=== PATIENT | male | born 1935 | race Caucasian/White ===

== ENCOUNTER → 2017-03-24 | Outpatient (CLI) | payer OTHER ==
[~2017-03-24] MED LIST: ACET-1256 PO; ASMIN/60 INH; ASTN; CZR50 PO; GEMF600T PO; MXZC25 PO; NIFE60TA PO; NTRGSL/4 UT; OXYC-292 PO; OXYC-57 PO; PANT40TA PO; PSYL55.43; SENN-63 PO; SIMV20TA2 PO; SOLI5TAB2 PO; TRIA0.1C55; WARF2TAB8 PO
== END | disposition home or self-care (01) ==
LOC: C.RDSM 13:13
PROVIDERS: ATTEND Physical Medicine & Rehabilitation Sports Medicine
DX: Z96.652 Presence of left artificial knee joint (principal); M25.562 Pain in left knee

== ENCOUNTER → 2017-05-07 | Outpatient (CLI) | payer OTHER ==
--- NOTE | 2017-05-07 15:23 | DIAGNOSTIC IMAGING REPORT ---
L PELVIS UNILATERAL HIP 1 VIEW CLINICAL HISTORY: TROCHANTERIC BURSITIS pain COMPARISON: None. DISCUSSION: Mild left and to lesser extent right hip greater trochanteric calcific bursitis. 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 Degenerative changes low lumbar spine. No evidence for acetabular protrusion. There is no evidence for soft tissue swelling. IMPRESSION: 1. Moderate degenerative changes of hips bilaterally. 2. Mild bilateral calcific trochanteric bursitis. 3. Degenerative changes low lumbar spine. The above report was generated using voice recognition software. It may contain grammatical, syntax or spelling errors. Electronically signed by: Trell De La Torre M.D. 05/07/2017 3:22 PM Dictated Date/Time: 05/07/2017 3:21 PM
--- NOTE | 2017-05-07 15:26 | DIAGNOSTIC IMAGING REPORT ---
LUMBAR SPINE MIN 4 VIEWS CLINICAL HISTORY: 82 years-old Male presenting with TROCHANTERIC BURSITIS, left hip and thigh pain, low back pain, history of left total knee arthroplasty. TECHNIQUE: Frontal, bilateral oblique, lateral, and coned in lateral views of lumbar spine were obtained. COMPARISON: Correlation made to CT of the abdomen and pelvis from 04/03/2012. FINDINGS: Mild levoscoliotic curvature of the lumbar spine centered at L3. Focal kyphotic deformity noted at T12-L1 secondary to anterior vertebral body height loss of L1 (approximately 40% height loss). This deformity is not significantly changed since 2011. Remainder of the vertebral bodies demonstrate normal height and alignment. Intervertebral disc height loss noted at L4-5. No pars defect is evident. Osseous neural foraminal narrowing may be present at L4-5 and L5-S1. IMPRESSION: 1. 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 2. Chronic compression fracture of L1 with resultant focal kyphotic deformity. 3. Mild levoscoliosis. Electronically signed by: Som Plummer M.D. 05/07/2017 3:25 PM Dictated Date/Time: 05/07/2017 3:21 PM
== END | disposition home or self-care (01) ==
LOC: C.RDSM 15:02
PROVIDERS: ATTEND Physician Assistant
DX: M79.652 Pain in left thigh (principal); M70.60 Trochanteric bursitis, unspecified hip; M16.0 Bilateral primary osteoarthritis of hip; M47.816 Spondylosis without myelopathy or radiculopathy, lumbar region; S32.011A Stable burst fracture of first lumbar vertebra, initial encounter for closed fracture; X58.XXXA Exposure to other specified factors, initial encounter; M40.209 Unspecified kyphosis, site unspecified

== ENCOUNTER → 2018-01-12 | Outpatient (CLI) | payer OTHER | END | disposition home or self-care (01) | LOC: C.RDSM 10:37 | PROVIDERS: ATTEND Physical Medicine & Rehabilitation Sports Medicine | DX: M54.5 Low back pain (principal) ==